=== PATIENT | male | born 1955 | race Caucasian/White ===

== ENCOUNTER 2022-12-08 02:45 | Emergency (ER) | payer MEDICARE, OTHER ==
[~2022-12-08] VITALS: Ht 178 cm; Wt 130.0 kg
[2022-12-08 02:45] VITALS: BP 142/83
[2022-12-08] MEDS ORDERED: morphine INJ 10 MG/ML 1ML (SYR OR VIAL) IM STA (02:57)
[2022-12-08] MEDS ORDERED: ORPHENADRINE 60 MG/2 ML (NORFLEX) AMP (ED ONLY) IM ONE (03:00)
--- NOTE | 2022-12-08 03:25 | ED Back Pain ---
General Chief Complaint: Back Problems Stated Complaint: LOWER BACK PAIN Nursing Triage Note: Pt presents via EMS, with c/o back pain. Pt was on the toilet and started having severe lower back pain, he was able to get up on his own and ambulate to call 911. Pt denies injury, able to walk with cane. Source of Information: Patient Exam Limitations: No Limitations History of Present Illness Date Seen by Provider: Dec 08, 2022 Time Seen by Provider: 02:47 Allergies and Home Medications Allergies Coded Allergies: Penicillins (Verified Allergy, Unknown, 12/08/22) Sulfa (Sulfonamide Antibiotics) (Verified Allergy, Unknown, 12/08/22) Physical Exam Vital Signs Vital Signs - First Documented 12/08/22 02:45 Temp 37.2 Pulse 90 Resp 18 B/P (MAP) 142/83 (102) Pulse Ox 94 O2 Delivery Room Air Capillary Refill : Less Than 3 Seconds Height, Weight, BMI Height: '" Weight: lbs. oz. kg; 41.00 BMI Method: Progress/Results/Core Measures Results/Orders My Orders Orders - VICKIE SIU MD Morphine Injection (Morphine Injection (12/08/22 02:57) Orphenadrine Inj (Ed Only) (Norflex Inje (12/08/22 03:00) Medications Given in ED Current Medications Medications Dose Ordered Sig/Taina Route Start Time Stop Time Status Last Admin Dose Admin Orphenadrine Citrate 60 mg ONCE ONCE IM 12/08/22 03:00 12/08/22 03:01 DC 12/08/22 03:20 60 MG Vital Signs/I&O 12/08/22 02:45 Temp 37.2 Pulse 90 Resp 18 B/P (MAP) 142/83 (102) Pulse Ox 94 O2 Delivery Room Air Blood Pressure Mean: 102 Departure Impression Primary Impression: Acute exacerbation of chronic low back pain Disposition: 01 HOME, SELF-CARE Condition: Improved Departure-Patient Inst. Decision time for Depature: 04:21 Referrals: UNKNOWN (PCP/Family) Primary Care Physician Patient Instructions: Low Back Pain in Adults Add. Discharge Instructions: Follow-up with your primary care provider soon as possible for further evaluation and management of your back pain. For mild to moderate pain you may continue using hydrocodone as previously prescribed. For more intense pain use Percocet 1 to 2 tablets every 4 hours as prescribed. Return to care in the emergency room promptly if you develop worsening symptoms that include escalating pain not controlled by your medications, numbness in the groin, true weakness of your legs, or problems with bowel or bladder control. All discharge instructions reviewed with patient and/or family. Voiced understanding. Scripts Oxycodone HCl/Acetaminophen (Percocet 5-325 mg Tablet) 1 Each Tablet 1-2 TAB PO Q4H for PAIN-MODERATE MDD 6 TABS, #10 TAB Prov: VICKIE SIU MD 12/08/22 VICKIE SIU MD Dec 08, 2022 03:25
[2022-12-08] MEDS ORDERED: oxyCODONE/APAP 5/325MG (PERCOCET 5) TABLET PO ONE (04:30)
[2022-12-08] MEDS ORDERED: OXYC1TAB87 PO (04:32)
[2022-12-09] MEDS ORDERED: PRD20T PO (06:52)
== END 2022-12-08 05:01 | disposition home or self-care (01) ==
LOC: EDUNIT# 02:45 → ER 02:47
DX: M54.50 Low back pain, unspecified (principal); G89.29 Other chronic pain
CPT/HCPCS: 99284

== ENCOUNTER 2022-12-09 03:16 | Emergency (ER) | payer MEDICARE, OTHER ==
[~2022-12-09 03:16] MED LIST: OXYC1TAB87 PO
[2022-12-09] MEDS ORDERED: morphine INJ 10 MG/ML 1ML (SYR OR VIAL) IVP STA (03:46)
--- NOTE | 2022-12-09 03:59 | ED Back Pain ---
General Chief Complaint: Back Problems Stated Complaint: FALL Nursing Triage Note: TO ED VIA [facility] FROM HOME WITH C/O LOWER BACK PAIN AFTER FALLING OUT OF BED. DENIES HITTING HEAD. WAS SEEN IN ER 24H AGO FOR SAME COMPLAINTS. Source of Information: Patient, Old Records Exam Limitations: No Limitations (VICKIE SIU MD) History of Present Illness Date Seen by Provider: Dec 09, 2022 Time Seen by Provider: 03:40 Initial Comments This is a 67-year-old gentleman presents to the emergency room via [facility] secondary to severe lower back pain after falling out of bed. He has chronic low back pain and was seen in the emergency room last night for exacerbation of chronic pain. He does not feel like he had any significant blunt trauma to his lower back but thinks the fall out of bed exacerbated his chronic back pain again. He did not fill the Percocet prescribed yesterday because of concern this would be a violation of his controlled substances contract with the clinic. He denies any paralysis of the lower extremities, bowel or bladder dysfunction, or saddle paresthesia. We do not have any lumbar spine imaging on file. He takes gabapentin for his back pain. He has atrial fibrillation and is on Eliquis. (VICKIE SIU MD) Allergies and Home Medications Allergies Coded Allergies: Penicillins (Verified Allergy, Unknown, 12/08/22) Sulfa (Sulfonamide Antibiotics) (Verified Allergy, Unknown, 12/08/22) Patient Home Medication List Home Medication List Reviewed: Yes (RON FUENTES MD) Oxycodone HCl/Acetaminophen (Percocet 5-325 mg Tablet) 1 Each Tablet, 1-2 TAB PO Q4H Prescribed by: VICKIE US on 12/08/22 0433 Prednisone (Prednisone) 20 Mg Tab, 40 MG PO DAILY Prescribed by: VICKIE US on 12/09/22 0652 Review of Systems EENTM: no symptoms reported Respiratory: no symptoms reported Cardiovascular: no symptoms reported Gastrointestinal: no symptoms reported Genitourinary: no symptoms reported Musculoskeletal: see HPI Skin: no symptoms reported Psychiatric/Neurological: No Symptoms Reported (VICKIE SIU MD) Constitutional: see HPI (RON FUENTES MD) Past Txseiuz-Mklizq-Czqlfe Hx Immunizations Up To Date Influenza Vaccine Up-to-Date: Yes; Up-to-Date (VICKIE SIU MD) Past Medical History Respiratory: No Cardiac: Yes Atrial Fibrillation, Hypertension Musculoskeletal: Yes Chronic Back Pain (VICKIE SIU MD) Physical Exam Vital Signs Vital Signs - First Documented 12/09/22 03:16 Temp 37.6 Pulse 95 Resp 16 B/P (MAP) 159/109 (126) Pulse Ox 96 O2 Delivery Room Air (RON FUENTES MD) Vital Signs Capillary Refill : Less Than 3 Seconds (VICKIE SIU MD) Height, Weight, BMI Height: '" Weight: lbs. oz. kg; BMI Method: (VICKIE SIU MD) General Appearance: No Apparent Distress (RON FUENTES MD) Progress/Results/Core Measures Results/Orders Medications Given in ED Current Medications Medications Dose Ordered Sig/Taina Route Start Time Stop Time Status Last Admin Dose Admin Gabapentin 300 mg ONCE ONCE PO 12/09/22 07:15 12/09/22 07:16 DC 12/09/22 07:16 300 MG Orphenadrine Citrate 60 mg ONCE ONCE IV 12/09/22 04:00 12/09/22 04:01 DC 12/09/22 04:20 60 MG (RON FUENTES MD) Vital Signs/I&O 12/09/22 12/09/22 03:16 07:16 Temp 37.6 37.6 Pulse 95 78 Resp 16 16 B/P (MAP) 159/109 (126) 145/99 Pulse Ox 96 96 O2 Delivery Room Air Room Air (RON FUENTES MD) Blood Pressure Mean: 126 Progress Progress Note : Progress Note CT of the lumbar spine was reviewed by me and [employer] report was reviewed. Patient has significant lumbar stenosis without evidence of acute injury. Referral to a spine surgeon was recommended. He was treated with morphine and Norflex which worked well for him yesterday. Gabapentin was also given prior to discharge. Steroids were prescribed. See discharge instructions for further discussion. (VICKIE SIU MD) Progress Note : Progress Note The patient was discharged and I was not part of the patient's care, however I received a phone call after his discharge from the on-call radiologist that he has over read the CT scan of his lumbar spine. They are concerned for a left- sided pleural effusion that they did not initially put in the read. I personally contacted the patient and discussed this with him. 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 He states he has had the fluid pulled off in the past and currently he is doing okay, but does have follow-up with them. He is not feeling short of breath at this time. (RON FUENTES MD) Diagnostic Imaging Diagonstic Imaging: CT Plain Films/CT/US/NM/MRI: other (Lumbar spine) Comments CT images were reviewed by me. No acute injury was identified by my interpretation. [employer] report was reviewed and indicated significant lumbar stenosis without acute traumatic injury. After the over read of CT scan, patient was notified of his pleural effusion by Dr. Fuentes. See Dr. Fuentes's note for specific discussion regarding pleural effusion. See report of overread below: NAME: JHONNY MACARIO [facility] REC#: [id number] PT STATUS: DEP ER : [id number] PHYSICIAN: VICKIE SIU MD ADMIT DATE: 12/09/22/ER Signed Date of Exam:12/09/22 CT LUMBAR SPINE WO PROCEDURE: CT lumbar spine without contrast. TECHNIQUE: Multiple contiguous axial images were obtained through the lumbar spine without the use of intravenous contrast. Sagittal and coronal reformations were then performed. Auto Exposure Controls were utilized during the CT exam to meet ALARA standards for radiation dose reduction. INDICATION: Trauma. Fall. Low back pain. COMPARISON: None. FINDINGS: Normal alignment. No fractures. The visualized pelvis is intact. Moderate diffuse degenerative endplate changes and facet arthropathy. Probable high-grade spinal canal stenosis at L2-L3, L3-L4 and L4-L5. High-grade neural foraminal narrowing on the left at L4-L5 and L5-S1. Partially visualized left pleural effusion. Cholecystectomy. Partially visualized left MARLENY. IMPRESSION: 1. No acute CT findings in the lumbar spine. 2. 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 This could be further evaluated with MRI if clinically warranted. 3. Partially visualized left pleural effusion. Findings differ from preliminary interpretation which did not mention the partially visualized left pleural effusion. Findings were discussed with Dr. Payton in the [facility] emergency department at 7:47 AM on 12/09/2022. Dictated by: Dictated on workstation # [id number] Dict: 12/09/22625 Trans: 12/09/2255 [facility] [id number] Interpreted by: JENNIFER SMYTH MD Electronically signed by: JENNIFER SMYTH MD 12/09/22854 (VICKIE SIU MD) Departure Impression Primary Impression: Acute exacerbation of chronic low back pain Additional Impressions: Fall from bed Qualified Codes: W06.XXXA - Fall from bed, initial encounter Lumbar spinal stenosis Qualified Codes: M48.061 - Spinal stenosis, lumbar region without neurogenic claudication Disposition: 01 HOME, SELF-CARE Condition: Improved Departure-Patient Inst. Decision time for Depature: 06:50 (VICKIE SIU MD) Referrals: STEPHANIE RESENDEZ (PCP/Family) Primary Care Physician Patient Instructions: Low Back Pain in Adults, Spinal Stenosis, Spinal Stenosis Stretching Exercises Add. Discharge Instructions: You may add prednisone as prescribed to help with inflammation in your back. Take with food or milk to avoid upset stomach and take early in the day to avoid sleep disturbance. Discuss further pain management with your primary care provider including filling the Percocet which was previously prescribed from the ER and increasing frequency and/or dose of gabapentin. Also discussed possible referral to a spine surgeon with your primary care provider. Return to care if you have worsening symptoms despite following these instructions, especially if you develop numbness in your groin, true weakness in your legs, or bowel or bladder dysfunction. All discharge instructions reviewed with patient and/or family. Voiced understanding. Scripts Prednisone (Prednisone) 20 Mg Tab 40 MG PO DAILY, #8 TAB 0 Refills Prov: VICKIE SIU MD 12/09/22 Copy Copies To 1: [facility]/VICKIE MEJIA MD Dec 09, 2022 03:59 RON FUENTES MD Dec 09, 2022 08:03
[2022-12-09] MEDS ORDERED: ORPHENADRINE 60 MG/2 ML (NORFLEX) AMP (ED ONLY) IV ONE (04:00)
[2022-12-09] MEDS ORDERED: PRD20T PO (06:52)
[2022-12-09] MEDS ORDERED: GABAPENTIN 300 MG (NEURONTIN) CAP PO ONE (07:15)
[2022-12-09 07:16] VITALS: BP 145/99
--- NOTE | 2022-12-09 08:00 | Diagnostic Imaging Report ---
PROCEDURE: CT lumbar spine without contrast. TECHNIQUE: Multiple contiguous axial images were obtained through the lumbar spine without the use of intravenous contrast. Sagittal and coronal reformations were then performed. Auto Exposure Controls were utilized during the CT exam to meet ALARA standards for radiation dose reduction. INDICATION: Trauma. Fall. Low back pain. COMPARISON: None. FINDINGS: Normal alignment. No fractures. The visualized pelvis is intact. Moderate diffuse degenerative endplate changes and facet arthropathy. Probable high-grade spinal canal stenosis at L2-L3, L3-L4 and L4-L5. High-grade neural foraminal narrowing on the left at L4-L5 and L5-S1. Partially visualized left pleural effusion. Cholecystectomy. Partially visualized left MARLENY. IMPRESSION: 1. No acute CT findings in the lumbar spine. 2. 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 This could be further evaluated with MRI if clinically warranted. 3. Partially visualized left pleural effusion. Findings differ from preliminary interpretation which did not mention the partially visualized left pleural effusion. Findings were discussed with Dr. Payton in the [facility] emergency department at 7:47 AM on 12/09/2022. Dictated by: Dictated on workstation # [id number]
== END 2022-12-09 07:18 | disposition home or self-care (01) ==
LOC: EDUNIT# 03:16 → ER 03:18
DX: M48.061 Spinal stenosis, lumbar region without neurogenic claudication (principal); G89.29 Other chronic pain; W06.XXXA Fall from bed, initial encounter
CPT/HCPCS: 72131